=== PATIENT | female | born 1970 | race Caucasian/White ===

== ENCOUNTER 2019-02-16 08:53 | Emergency (ER) | payer OTHER ==
[~2019-02-16] VITALS: Ht 167.6 cm; Wt 57.0 kg
[2019-02-16] MEDS ORDERED: SODIUM CHLORIDE 0.9% 1,000 ML IV ONE (09:18)
[2019-02-16] MEDS ORDERED: KETOROLAC 30MG/ML VIAL IV STA (09:18)
[2019-02-16] MEDS ORDERED: DIAZEPAM 5 MG TABLET PO ONE (09:30)
[2019-02-16] MEDS ORDERED: ONDANSETRON HCL 4MG/2ML INJ IV ONE (09:45)
[2019-02-16 09:50] LABS: HCG SCREEN NEGATIVE
[2019-02-16] MEDS ORDERED: TRAMADOL 50MG TABLET PO ONE (11:00)
[2019-02-16 11:09] VITALS: BP 123/87
== END 2019-02-16 11:21 | disposition home or self-care (01) ==
LOC: ER 08:53
DX: M54.5 Low back pain (principal); V49.49XA Driver injured in collision with other motor vehicles in traffic accident, initial encounter; Y93.89 Activity, other specified; Y92.89 Other specified places as the place of occurrence of the external cause; Y99.8 Other external cause status
CPT/HCPCS: 72131; 81025; 84703; 96374; 96375; 99284; J1885; J2405; J7030